=== PATIENT | female | born 1985 | race Caucasian/White ===

== ENCOUNTER 2022-04-16 12:38 | Emergency (ER) | payer MEDICAID | END 2022-04-16 14:41 | disposition left against medical advice (07) | LOC: MERGE 12:38 → MW.ED 12:38 | DX: Z53.21 Procedure and treatment not carried out due to patient leaving prior to being seen by health care provider (principal) ==

== ENCOUNTER 2022-08-07 10:44 | Emergency (ER) | payer MEDICAID ==
[2022-08-07] MEDS ORDERED: Sodium Chloride 0.9% 10 ML Syringe FLUSH PRN (11:34)
[2022-08-07] MEDS ORDERED: Sodium Chloride 0.9% 2.5 ML Syringe FLUSH PRN (11:34)
[2022-08-07] MEDS ORDERED: Ketorolac 30 MG/ML SDV IVPUSH ONE (11:34)
[2022-08-07] MEDS ORDERED: Sodium Chloride 0.9% 1,000 ML IV ONE (11:34)
[2022-08-07 12:15] LABS: CORONAVIRUS COVID-19 NAA NEGATIVE (NEGATIVE); INFLUENZA A NAA POSITIVE (NEGATIVE); INFLUENZA B NAA NEGATIVE (NEGATIVE); RESPIRATORY SYNCYTIAL VIR NAA NEGATIVE (NEGATIVE)
[2022-08-07 12:24] LABS: CARBON DIOXIDE,CO2 26.2 mmol/L (21.0-32.0); POTASSIUM,K 3.9 mmol/L (3.5-5.1)
== END 2022-08-07 13:27 | disposition home or self-care (01) ==
LOC: MW.ED 10:44
DX: J10.1 Influenza due to other identified influenza virus with other respiratory manifestations (principal); J45.909 Unspecified asthma, uncomplicated; Z79.899 Other long term (current) drug therapy; Z20.822 Contact with and (suspected) exposure to COVID-19
CPT/HCPCS: 0241U; 36415; 71045; 80053; 83735; 85025; 93005; 96361; 96374; 99285; J1885; J3490; J7030

== ENCOUNTER 2023-01-15 17:21 | Emergency (ER) | payer BC, MEDICAID ==
[2023-01-15 17:57] LABS: APPEARANCE,URINE CLEAR; BILIRUBIN,URINE SMALL (NEGATIVE); COLOR,URINE YELLOW; GLUCOSE,URINE NEGATIVE (NEGATIVE); KETONES,URINE 15 mg/dL (NEGATIVE); LEUKOCYTE ESTERASE,URINE NEGATIVE (NEGATIVE); NITRITE,URINE NEGATIVE (NEGATIVE); OCCULT BLOOD,URINE NEGATIVE (NEGATIVE); PH,URINE 5.5 (5.0-8.0); PROTEIN,URINE NEGATIVE (NEGATIVE); UROBILINOGEN,URINE 0.2 EU/dL (<2.0)
[2023-01-15] MEDS ORDERED: Cephalexin 500 MG Cap PO STA (19:42)
== END 2023-01-15 20:04 | disposition home or self-care (01) ==
LOC: MW.ED 17:21
DX: R30.0 Dysuria (principal); J45.909 Unspecified asthma, uncomplicated
CPT/HCPCS: 74176; 81003; 81025; 99284; A9270; 99283

== ENCOUNTER 2023-09-07 14:44 | Emergency (ER) | payer OTHER, BC, MEDICAID ==
[2023-09-07] MEDS ORDERED: Diazepam 5 MG Tab PO ONE (15:43)
[2023-09-07] MEDS ORDERED: Ibuprofen 600 MG Tab PO ONE (15:43)
== END 2023-09-07 17:22 | disposition home or self-care (01) ==
LOC: MW.ED 14:44
DX: M54.2 Cervicalgia (principal); R07.89 Other chest pain; J45.909 Unspecified asthma, uncomplicated; Z90.49 Acquired absence of other specified parts of digestive tract; Z79.899 Other long term (current) drug therapy; V49.40XA Driver injured in collision with unspecified motor vehicles in traffic accident, initial encounter; Y92.410 Unspecified street and highway as the place of occurrence of the external cause
CPT/HCPCS: 71250; 72125; 99284; A9270

== ENCOUNTER 2023-09-20 10:20 | Emergency (ER) | payer BC, MEDICAID | END 2023-09-20 12:33 | disposition home or self-care (01) | LOC: MW.ED 10:20 | DX: S90.31XA Contusion of right foot, initial encounter (principal); J45.909 Unspecified asthma, uncomplicated; Z79.899 Other long term (current) drug therapy; Z90.49 Acquired absence of other specified parts of digestive tract; X58.XXXA Exposure to other specified factors, initial encounter | CPT/HCPCS: 73590-26-RT; 73590-RT; 73610-26-RT; 73610-RT; 73630-26-RT; 73630-RT; 99282; 99283 ==